=== PATIENT | female | born 1985 | race Two or more races ===

== ENCOUNTER 2020-09-09 12:13 | Emergency (ER) | payer OTHER ==
[2020-09-09 12:18] VITALS: BP 140/72; PULSE 94; TEMP 98.1; BMI 25.7
== END 2020-09-09 13:28 | disposition home or self-care (01) ==
LOC: JERFT 12:13
DX: S93.401A Sprain of unspecified ligament of right ankle, initial encounter (principal)
CPT/HCPCS: 73610-TC-RT-FY; 73630-TC-RT-FY; 99283-25